=== PATIENT | male | born 1995 | race Caucasian/White ===

== ENCOUNTER 2016-10-01 16:51 | Emergency (ER) | payer BC, OTHER ==
[~2016-10-01] VITALS: Ht 185.4 cm; Wt 110.0 kg
[2016-10-01 16:56] VITALS: TEMP 37.1; Ht 185.4 cm; Wt 110.0 kg
[2016-10-01] MEDS ORDERED: IBUP-1050 PO (17:34)
--- NOTE | 2016-10-01 17:37 | DIAGNOSTIC IMAGING REPORT ---
KNEE 3 VIEWS CLINICAL HISTORY: right knee pain pain COMPARISON: None. DISCUSSION: The bones and joint spaces appear intact. There is no evidence of fracture, dislocation or bony disease. There is no evidence for soft tissue swelling. IMPRESSION: Negative study. Electronically signed by: Cole Sullivan M.D. 10/01/2016 5:35 PM Dictated Date/Time: 10/01/2016 5:35 PM
--- NOTE | 2016-10-01 18:03 | EMERGENCY ROOM VISIT NOTE ---
ED Visit Note First contact with patient: 17:01 CHIEF COMPLAINT: Right knee pain 2 hours HISTORY OF PRESENT ILLNESS: Patient is a 21-year-old white male who presents to emergency department by ambulance for evaluation of right knee pain 2 hours. 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 He states that around the 40 to our hernan began to feel a little bit delirious and was walking around a lot. He does not believe that he fell, but that when the knee began to bother him. He was evaluated by athletic trainers who thought that he may have "torn a ligament." He took ibuprofen and ice to the knee. He states that the pain is in the front part of the knee, and worse with walking, weightbearing and with flexion. He denies any prior history of injury to this knee. He rates his discomfort a 3/10. REVIEW OF SYSTEMS: Review of systems as per HPI. All other systems reviewed were negative. At least 6 systems reviewed.. PMH: Electronic medical records are reviewed and summarized as above/below. See Problem List. SOCIAL HISTORY: Patient lives at home. [employer] student. Nonsmoker. PHYSICAL EXAM: Vital Signs: Reviewed Nurse's notes. MENTAL STATUS: Patient is a well-appearing 21-year-old white male who is awake and alert and in no acute distress. KNEE: Examination of the right knee no mild prepatellar soft tissue swelling. No significant knee joint effusion. Skin is intact without erythema or ecchymosis. He has tenderness to palpation over the anterior aspect of the knee over the prepatellar space and the patellar tendon. No medial or lateral joint line tenderness. No popliteal swelling or fullness. He can extend fully , flexes greater than 90. No ligamentous instability is appreciated. EMERGENCY DEPARTMENT COURSE: X-rays of the right knee were obtained and did not note any evidence for acute bony abnormality. The patient in a knee immobilizer and issued crutches. Conservative care measures were discussed. It does not appear that the patient suffered a fall or direct trauma to the knee , but was certainly standing on the leg for the last 2 days while participating in the [employer] [place]. That alone could cause some knee discomfort. Due to the overuse and extreme physical activity. The patient was encouraged to rest the knee, ice and use [id number] medications for discomfort. Brace and crutches for comfort and to seek care and management if his symptoms are not improving. Differential diagnoses entertained included sprain, contusion, ligamentous injury, bursitis, tendinitis, among others. KNEE 3 VIEWS CLINICAL HISTORY: right knee pain pain COMPARISON: None. DISCUSSION: The bones and joint spaces appear intact. There is no evidence of fracture, dislocation or bony disease. There is no evidence for soft tissue swelling. IMPRESSION: Negative study. Current/Historical Medications Scheduled Ibuprofen (Advil), 200-600 MG PO Q4H Allergies Coded Allergies: No Known Allergies (Unverified , 10/01/16) Vital Signs Date Time Temp Pulse Resp B/P Pulse Ox O2 Delivery O2 Flow Rate FiO2 10/01/16 18:25 93 20 141/72 97 10/01/16 16:56 37.1 85 16 137/81 99 Room Air Departure Information Impression Primary Impression: Right knee pain Patient Instructions [facility] Additional Instructions Ibuprofen(Motrin, Advil) may be used for fever or pain. Use 600mg every six hours as needed. Take with food. Avoid using more than 2400mg in a 24 hour period. Do not use 2400mg per day for more than three consecutive days without physician direction. Prolonged inappropriate use can lead to stomach upset or ulcers. This medication can be taken if you need to drive, work, or perform activities which may be dangerous when taking narcotic pain medication. (AND/OR) Acetaminophen(Tylenol) may be used for fever or pain. Use 1000mg every six hours as needed. Avoid using more than 3000mg in a 24 hour period. This medication can be taken if you need to drive, work, or perform activities which may be dangerous when taking narcotic pain medication. Ice compresses for 20 minutes at a time four times daily for 2-3 days. Use the knee immobilizer and crutches as instructed. Rest and elevate your injury. Continue current medications. Return to the ER immediately for any numbness, tingling, severe pain, extreme swelling in the extremity or as needed. Follow-up with [facility] or orthopedics if your symptoms are not improving in the next 5-7 days.
[2016-10-01 18:25] VITALS: BP 141/72; PULSE 93; O2SAT 97
== END 2016-10-01 18:28 | disposition home or self-care (01) ==
LOC: C.EDD 16:53
DX: M25.561 Pain in right knee (principal); X50.1XXA Overexertion from prolonged static or awkward postures, initial encounter; Y92.89 Other specified places as the place of occurrence of the external cause